=== PATIENT | male | born 1995 | race Caucasian/White ===

== ENCOUNTER → 2022-02-01 | Outpatient (CLI) | payer SELFPAY | LOC: LAB 11:16 | PROVIDERS: ATTEND Family Medicine | DX: N46.9 Male infertility, unspecified (principal) | CPT/HCPCS: 89320 ==

== ENCOUNTER → 2022-03-04 | Outpatient (CLI) | payer SELFPAY ==
[2022-03-04 12:00] LABS: SEMEN VOLUME 3.8 ML (1.5-5.0)
== END ==
LOC: LAB 10:12
PROVIDERS: ATTEND Nurse Practitioner Family
DX: N46.9 Male infertility, unspecified (principal)
CPT/HCPCS: 89320